=== PATIENT | male | born 1960 | race Hispanic/Latino ===

== ENCOUNTER 2018-04-13 06:23 | Day surgery (SDC) | payer OTHER ==
[2018-04-13 07:53] VITALS: O2SAT 98
[2018-04-13] MEDS ORDERED: Midazolam 2 MG/2 ML VIAL ONE (07:55)
[2018-04-13] MEDS ORDERED: Propofol 10 mg/ml Inj (20 ML) ONE (07:56)
[2018-04-13 08:39] VITALS: RESP 18; TEMP 97.5
[2018-04-13 10:49] VITALS: BP 118/67; PULSE 64
== END 2018-04-13 10:37 | disposition home or self-care (01) ==
LOC: C.ENDO 06:23
PROVIDERS: ATTEND Internal Medicine Gastroenterology
DX: K21.0 Gastro-esophageal reflux disease with esophagitis (principal); K29.70 Gastritis, unspecified, without bleeding
CPT/HCPCS: 43239; 88305; J2250; J2704